=== PATIENT | male | born 1965 | race Caucasian/White ===

== ENCOUNTER 2017-10-17 15:20 | Emergency (ER) | payer OTHER, SELFPAY ==
[2017-10-17 16:19] LABS: Bacteria/HPF 2+ HPF (None Seen); Bilirubin Large (Negative); Blood, Urine Large (Negative); Clarity Slightly Cloudy (Clear); Glucose, Urine (Dipstick) 100 mg/dL (Negative); Leukocyte Moderate (Negative); Nitrite Negative (Negative); Protein, Urine (Dipstick) > or equal to 300 mg/dL (Neg-Trace); Specific Gravity, Urine 1.015 (1.005-1.030); WBC/HPF 21-50 HPF (0-3); pH, Urine 6.5 (5.0-9.0)
[2017-10-17] MEDS ORDERED: traMADol HCl 50 MG TAB ONE (16:44)
[2017-10-17] MEDS ORDERED: Ciprofloxacin 500 MG TAB ONE (16:44)
== END 2017-10-17 16:50 | disposition home or self-care (01) ==
LOC: MADERS 15:20
DX: N39.0 Urinary tract infection, site not specified (principal); I10 Essential (primary) hypertension; F17.220 Nicotine dependence, chewing tobacco, uncomplicated; Z86.718 Personal history of other venous thrombosis and embolism; Z79.01 Long term (current) use of anticoagulants; Z79.899 Other long term (current) drug therapy
CPT/HCPCS: 81001; 87086; 99283

== ENCOUNTER 2019-11-10 15:21 | Outpatient (CLI) | payer BC ==
[2019-11-10 16:12] LABS: Anion Gap 18 mmol/L (10-20); BUN (Urea Nitrogen) 20 mg/dL (8.4-25.7); CK (CPK) 439 U/L (30-200); CRP (Inflammatory) 1.57 mg/dL (= or < 0.5); Calc. Creatinine Clearance 0 mL/min (70-130); Calcium 8.6 mg/dL (7.8-10.44); Carbon Dioxide 26 mmol/L (22-29); Chloride 105 mmol/L (98-107); Estimated GFR-MDRD Greater than 90; Glucose 81 mg/dL (70-105); Potassium 3.9 mmol/L (3.5-5.1); Sodium 145 mmol/L (136-145)
[2019-11-10 16:13] LABS: #Eosinphils 0.3 thou/uL (0.0-0.7); #Lymphocytes 1.7 thou/uL (1.20-3.40); #Monocytes 0.3 thou/uL (0.11-0.59); #Neutrophils 2.2 thou/uL (1.40-6.50); %Eosinophils 6.3 % (0.0-10.0); %Lymphocytes 36.4 % (21.0-51.0); %Monocytes 7.3 % (0.0-10.0); Hemoglobin 10.5 g/dL (14.0-18.0); Mean Corpuscular HGB CONC 30.5 g/dL (32.0-36.0); Mean Corpuscular Hemoglobin 26.7 pg (27.0-31.0); Mean Corpuscular Volume 87.6 fL (78.0-98.0); Mean Platelet Volume 6.5 fL (7.4-10.4); Platelet Count 318 thou/uL (130-400); RBC Distribution Width 15.4 % (11.5-14.5); Red Blood Cell (RBC) Count 3.91 mill/uL (4.70-6.10); White Blood Cell (WBC) Count 4.5 thou/uL (4.8-10.8)
[2019-11-10 21:46] LABS: Follow-up Hematology Comp? YES; Follow-up Result - Hematology REPORT FAXED
== END 2019-11-10 15:22 | disposition home or self-care (01) ==
LOC: MADLABSP 15:21
DX: E11.51 Type 2 diabetes mellitus with diabetic peripheral angiopathy without gangrene (principal); G82.20 Paraplegia, unspecified; D64.9 Anemia, unspecified; I10 Essential (primary) hypertension; Z79.2 Long term (current) use of antibiotics
CPT/HCPCS: 80048; 82550; 85025; 85652; 86140

== ENCOUNTER 2020-05-12 13:13 | Outpatient (CLI) | payer BC ==
[2020-05-12 13:35] LABS: Bilirubin Negative (Negative); Blood, Urine Moderate (Negative); Clarity Clear (Clear); Glucose, Urine (Dipstick) Negative (Negative); Ketone, Urine Negative (Negative); Leukocyte Small (Negative); Nitrite Negative (Negative); Protein, Urine (Dipstick) Negative (Neg-Trace); Specific Gravity, Urine 1.015 (1.005-1.030); Urobilinogen 0.2 mg/dL (Less than 2); pH, Urine 6.5 (5.0-9.0)
[2020-05-12 13:41] LABS: RBC/HPF Greater than 50 HPF (0-3)
[2020-05-12 13:42] LABS: Bacteria/HPF Rare-Few HPF (None Seen); Squamous Epithelial 0-3 HPF (0-3)
== END 2020-05-12 13:14 | disposition home or self-care (01) ==
LOC: MADLAB 13:13
DX: N39.0 Urinary tract infection, site not specified (principal)
CPT/HCPCS: 81003; 81015; 87086

== ENCOUNTER 2022-01-18 13:44 | Outpatient (CLI) | payer BC | END 2022-01-18 13:45 | disposition home or self-care (01) | LOC: MADLAB 13:44 | DX: N39.0 Urinary tract infection, site not specified (principal) | CPT/HCPCS: 87077; 87086; 87186 ==